=== PATIENT | male | born 1960 | race Caucasian/White ===

== ENCOUNTER 2016-10-02 08:51 | Emergency (ER) | payer OTHER | END 2016-10-02 09:35 | disposition home or self-care (01) | LOC: ER1 08:51 | DX: R21 Rash and other nonspecific skin eruption (principal); L03.211 Cellulitis of face; I10 Essential (primary) hypertension; Z88.8 Allergy status to other drugs, medicaments and biological substances | CPT/HCPCS: 99282 ==